=== PATIENT | male | born 1950 | race Hispanic/Latino ===

== ENCOUNTER 2019-04-13 08:15 | Day surgery (SDC) | payer MEDICARE ==
[2019-04-10 14:59] LABS: BASOPHILS % (AUTO) 0.4 % (0.0-5.0); EOSINOPHILS % (AUTO) 3.2 % (0.0-8.0); HEMATOCRIT 40.7 % (42-54); LYMPHOCYTES % (AUTO) 20.9 % (21.0-51.0); MEAN CORPUSCULAR HEMOGLOBIN 31.3 pg (27.0-33.0); MEAN CORPUSCULAR HGB CONC 33.2 g/dL (32.0-36.0); MEAN CORPUSCULAR VOLUME 94.2 fL (79-99); MONOCYTES % (AUTO) 5.3 % (3.0-13.0); NEUTROPHILS % (AUTO) 69.9 % (40.0-77.0); PLATELET COUNT (AUTO) 223 K/uL (130-400); RED BLOOD CELL COUNT(AUTO) 4.32 MIL/uL (4.50-6.20); RED CELL DISTRIBUTION WIDTH 11.7 % (11.0-15.5); WHITE BLOOD COUNT (AUTO) 7.5 K/uL (4.8-10.8)
[2019-04-10 15:08] LABS: APPEARANCE,URINE Clear (CLEAR); BILIRUBIN,URINE Negative (NEGATIVE); COLOR,URINE Yellow (YELLOW); GLUCOSE, URINE (UA) Negative (NEGATIVE); KETONES,URINE Negative (NEGATIVE); LEUKOCYTE ESTERASE ,URINE Negative (NEGATIVE); NITRATE,URINE Negative (NEGATIVE); OCCULT BLOOD,URINE Negative (NEGATIVE); PH,URINE 5.5 (5.0-8.0); PROTEIN,URINE Negative (NEGATIVE); UROBILINOGEN,URINE 0.2 mg/dL (0.2-1.0)
[2019-04-10 15:09] LABS: CREATININE 0.9 mg/dL (0.5-1.5); POTASSIUM 4.2 mmol/L (3.5-5.1)
--- NOTE | 2019-04-10 15:35 | NUR ---
EKG 04/10/19 Dr Reynoso reviewed Ekg done on 04/10/19, no new orders, ok to proceed to surgery
[2019-04-10 15:47] VITALS: BP 151/82
[2019-04-13] VITALS (11 sets, daily range): BP systolic 116–132; BP diastolic 61–80
[~2019-04-13] VITALS: Ht 170.2 cm; Wt 73.6 kg
[2019-04-13] MEDS: CEFTRIAXONE SODIUM 1 GM IVP SCH ×2 (06:00→10:35)
[~2019-04-13 08:15] MED LIST: AMLO2.5T4 PO; APIX5TAB PO; FINA5TAB41 PO; GENTAMICIN 80 MG/NS 100 ML PB 100 ML IV SCH; LANTANOPROST OU; ROSU5TAB12 PO; TAMS-1 PO
[2019-04-13] MEDS ORDERED: LACTATED RINGERS 1000ML 1,000 ML IV ONE ×2 (09:18→09:29)
[2019-04-13] MEDS ORDERED: FENTANYL CITRATE PF 50 MCG/1 ML 2ML VIAL ONE (10:31)
[2019-04-13] MEDS ORDERED: PROPOFOL 10 MG/ML 20ML VIAL IV ONE (10:31)
[2019-04-13] MEDS ORDERED: MIDAZOLAM HCL 1 MG/ML 2ML VIAL ONE (10:31)
[2019-04-13] MEDS ORDERED: LIDOCAINE PF 2% 5ML ABBOJECT ONE (10:37)
[2019-04-13] MEDS ORDERED: LIDOCAINE HCL 2% PF 20 ML JEL DISP.SYRIN MM ONE (10:38)
[2019-04-13] MEDS ORDERED: EPHEDRINE SULFATE 50 MG/ML AMPULE ONE (10:52)
[2019-04-13] MEDS ORDERED: ONDANSETRON HCL 4 MG/2 ML VIAL ONE (11:14)
== END 2019-04-13 12:33 | disposition home or self-care (01) ==
LOC: DAH 08:15
PROVIDERS: ATTEND Urology
DX: C61 Malignant neoplasm of prostate (principal); N42.89 Other specified disorders of prostate; I10 Essential (primary) hypertension; E78.5 Hyperlipidemia, unspecified; I48.91 Unspecified atrial fibrillation; F41.9 Anxiety disorder, unspecified; F32.9 Major depressive disorder, single episode, unspecified; I25.10 Atherosclerotic heart disease of native coronary artery without angina pectoris; Z98.890 Other specified postprocedural states; Z85.038 Personal history of other malignant neoplasm of large intestine; Z79.01 Long term (current) use of anticoagulants; Z87.891 Personal history of nicotine dependence; Z82.49 Family history of ischemic heart disease and other diseases of the circulatory system
CPT/HCPCS: 36415; 55700; 76942; 80048; 81003; 84153; 85025; 87088; 88305; 93005; A4215 ×2; A4221; A4222; A4223; A4600; A4663; J0696; J1580; J2001; J2250; J2405; J2704; J3010; J3490; J7120 ×3

== ENCOUNTER → 2023-01-01 | Outpatient (CLI) | payer MEDICARE ==
[~2023-01-01] MED LIST changes: -GENTAMICIN 80 MG/NS 100 ML PB 100 ML IV SCH
== END | disposition home or self-care (01) ==
LOC: SHCH 08:27
PROVIDERS: ATTEND Internal Medicine Cardiovascular Disease
DX: I87.2 Venous insufficiency (chronic) (peripheral) (principal)
CPT/HCPCS: 93970